=== PATIENT | male | born 1950 | race Caucasian/White ===

== ENCOUNTER 2025-04-12 12:18 | Emergency (ER) | payer MEDICARE, SELFPAY ==
--- NOTE | 2025-04-12 12:22 | XR_ITS ---
WS: [id number] Portable AP upright chest, 04/12/2025 Clinical Data: cp Comparison: Two-view chest, 07/26/2009 Findings: No nodules, masses or effusions are seen. The heart is normal. The pulmonary vascularity is not increased. No pneumonia or pneumothorax is seen. The aortic arch shows calcification and there is tortuosity of the descending thoracic aorta. XR/XR chest 1V portable [id number] Impression: Atherosclerosis.
[2025-04-12 12:23] VITALS: BP 155/75; PULSE 73; RESP 16; TEMP 37; O2SAT 94; BMI 26.6
--- NOTE | 2025-04-12 12:26 | ECG_ITS ---
[facility]: 2025-[facility]12 Pat Name: Urbano Albert Department: Room: Gender: Male Ophthalmic Medical Technologist: : [id number] Requested By: Addi Steele Order Number: [id number] Nik MD: Dutch Clement M.D. Measurements Intervals [place] Rate: 75 P: 75 LA: 170 QRS: 66 QRSD: 105 T: 71 QT: 346 QTc: 387 Interpretive Statements SINUS RHYTHM WITH OCCASIONAL VENTRICULAR PREMATURE COMPLEXES INTERPRETATION BASED ON A DEFAULT AGE OF 40 YEARS Compared to ECG 07/26/2009 09:30:50 Ventricular premature complex(es) now present Electronically Signed On 04-12-2025 21:53:17 MECHANICAL DETAILER by Dutch Clement M.D. [email or web address] [id number]
--- NOTE | 2025-04-12 12:28 | W.ED.CHESTPA ---
HPI - Chest Pain General: Chief Complaint: Chest Pain Stated Complaint: cp Time Seen by Provider: 04/12/25 12:22 Source: patient Mode of arrival: ambulatory Limitations: no limitations History of Present Illness: 75-year-old male states that he has been having intermittent chest pains over the last 2 weeks. He states been sharp in nature. He denies any pain currently he denies any shortness of breath or nausea denies any worse improved factors had has a history of stent placement in the past. Denies any radiation of his pain. Related Data Home Medications ?Medication ?Instructions ?Recorded ?Confirmed aspirin 81 mg tablet,delayed 81 mg PO DAILY 04/12/25 04/12/25 release (Ron Low Dose Aspirin) lisinopril 30 mg tablet 30 mg PO DAILY 04/12/25 04/12/25 metoprolol succinate 50 mg 50 mg PO DAILY 04/12/25 04/12/25 tablet,extended release 24 hr nitroglycerin 0.4 mg sublingual 0.4 mg sublingual Q5M PRN Chest 04/12/25 04/12/25 tablet Pain rosuvastatin 40 mg tablet 40 mg PO DAILY 04/12/25 04/12/25 Allergies Allergy/AdvReac Type Severity Reaction Status Date / Time No Known Allergies Allergy Verified 04/12/25 12:27 Review of Systems Card: Reports: chest pain Physical Exam Const: COMMON NORMALS: patient oriented x3 HENMT: COMMON NORMALS: normocephalic and atraumatic HEAD & SCALP: normocephalic and atraumatic Neck/C-Spine: COMMON NORMALS: full ROM and supple Chest: COMMONS NORMALS: normal inspection of the chest and normal palpation of entire chest wall Resp: COMMON NORMALS: normal respiratory effort, No retractions, No use of accessory muscles and clear to auscultation bilaterally AUSCULTATION: clear to auscultation bilaterally Cardio: COMMON NORMALS: regular rate, regular rhythm and No murmurs present (Cardio) RATE: regular rate RHYTHM: regular rhythm GI: COMMON NORMALS: Normal to inspection, nondistended, normoactive bowel sounds present, Soft to palpation, non-tender and no masses PALPATION: Yes Soft to palpation Extremity: COMMON NORMALS: normal to inspection and full ROM Neuro: COMMON NORMALS: patient oriented x3, moves all extremities and no focal motor deficits Psych: COMMON NORMALS: mental status grossly normal, Normal thought process present and cooperative THOUGHT PROCESS: Normal thought process present Skin: COMMON NORMALS: no rashes or lesions noted and no wounds GENERAL SKIN EXAM: no rashes or lesions noted Course Vital Signs: Vital signs: Vital Signs Temperature 98.6 F 04/12/25 12:23 Pulse Rate 63 04/12/25 14:00 Respiratory Rate 16 04/12/25 14:00 Blood Pressure 137/65 04/12/25 14:00 Pulse Oximetry 93 04/12/25 14:00 Oxygen Delivery Me thod Room Air 04/12/25 14:00 MDM - Chest Pain Medical Decision Making Patient presents here and chest pain has been going on for weeks differential includes ACS, pneumothorax, pulm emboli, pneumonia, aortic dissection. I do not believe he has any of the above chest x-ray here interpreted by me showed no acute abnormalities no signs of pneumonia pneumothorax or mediastinal widening. He has no shortness of breath no chest pain here no signs of pulm emboli. Patient's heart score is 2 his initial and repeat troponins are negative EKG showed normal sinus rhythm heart rate [address] elevation QRS 105 QTc 374. Patient has been chest pain-free while here. I did go over all these findings with patient including his normal labs. Informed him he needs to follow-up his PCP in 2 to 4 days and return if worsening he understands agrees to plan. Medical Records I reviewed the patient's medical records. Lab Data I reviewed the patient's lab results. 04/12/25 12:30 04/12/25 12:30 Radiology Impressions Chest X-Ray 04/12/25 12:22 Impression: Atherosclerosis. Laboratory Results WBC 4.52 10^3/uL (3.29-11.43) 04/12/25 12:30 RBC 5.02 10^6/uL (3.85-5.65) 04/12/25 12:30 Hgb 15.10 g/dL (11.27-16.99) 04/12/25 12:30 Hct 44.5 % (37-53) 04/12/25 12:30 MCV 88.6 fl (82-101) 04/12/25 12:30 MCH 30.1 pg (27-33) 04/12/25 12:30 MCHC 33.9 g/dL (30-55) 04/12/25 12:30 RDW 12.4 % (12.1-15.1) 04/12/25 12:30 Plt Count 154 10^3/cmm (157-399) L 04/12/25 12:30 MPV 9.7 fL (7.4-10.4) 04/12/25 12:30 Neut % (Auto) 52.9 % 04/12/25 12: Lymph % (Auto) 37.2 % 04/12/25 12:30 Leake % (Auto) 7.7 % 04/12/25 12:30 Eos % (Auto) 1.3 % 04/12/25 12:30 Baso % (Auto) 0.7 % 04/12/25 12:30 Neut # (Auto) 2.39 10^3/uL (1.8-7.7) 04/12/25 12: Lymph # (Auto) 1.7 10^3/uL (0.8-4.8) 04/12/25 12:30 Leake # (Auto) 0.4 10^3/uL (0.2-0.9) 04/12/25 12:30 Eos # (Auto) 0.1 10^3/uL (0.0-0.8) 04/12/25 12:30 Baso # (Auto) 0.0 10^3/uL (0.0-0.1) 04/12/25 12:30 Nucleated RBC % (auto) 0 % 04/12/25 12: Nucleated RBCs # 0.0 /100WBC 04/12/25 12:30 Sodium 143 mmol/L (136-145) 04/12/25 12:30 Potassium 4.2 mmol/L (3.5-5.1) 04/12/25 12:30 Chloride 109 mmol/L (98-107) H 04/12/25 12:30 Carbon Dioxide 23 mmol/L (22-29) 04/12/25 12:30 Anion Gap 15.2 (5-19) 04/12/25 12:30 BUN 14 mg/dL (8-23) 04/12/25 12:30 Creatinine 0.7 mg/dL (0.7-1.2) 04/12/25 12:30 GFR Calculation Not Reportable 04/12/25 12:30 Glucose 121 mg/dL (65-115) H 04/12/25 12:30 Calculated Osmolality 298 mOsm/kg (285-295) H 04/12/25 12:30 Calcium 9.4 mg/dL (8.5-10.5) 04/12/25 12:30 Total Bilirubin 0.6 mg/dL (0.15-1.2) 04/12/25 12:30 AST 24 U/L (0-40) 04/12/25 12:30 ALT 20 U/L (0-41) 04/12/25 12:30 Alkaline Phosphatase 90 U/L (40-130) 04/12/25 12:30 Troponin T Baseline 12 ng/L (0-15) 04/12/25 12:30 Troponin T 120 Minute 11.41 ng/L (0-15) 04/12/25 14:01 Delta Troponin T -0.59 ABS# (0-10) L 04/12/25 14:01 Total Protein 6.7 g/dL (6.6-8.7) 04/12/25 12:30 Albumin 4.3 g/dL (3.5-5.2) 04/12/25 12:30 Globulin 2.4 g/dL (1.3-4.6) 04/12/25 12:30 Lipase 26 U/L (13-60) 04/12/25 12:30 All radiology interpretation(s) finalized by discharge EKG Data EKG 1: I personally reviewed and interpreted this EKG as follows: EKG interpretation date: 04/12/25 EKG interpretation time: 12:26 Interpretation: nsr hr [address] elevation qrs 105 qtc 374 EKG 2: I personally reviewed and interpreted this EKG as follows: EKG interpretation date: 04/12/25 EKG interpretation time: 14:05 Interpretation: nsr hr [address] elevation qrs 86 qtc 387 Discharge Plan Discharge Patient Disposition: Home Clinical Impression: Chest pain Condition: Stable Prescriptions: No Action metoprolol succinate 50 mg tablet extended release 24 hr 50 mg PO DAILY aspirin [Ron Low Dose Aspirin] 81 mg Tablet,Delayed Release (Dr/Ec) 81 mg PO DAILY nitroglycerin 0.4 mg Tablet, Sublingual 0.4 mg SUBLINGUAL Q5M PRN (Reason: Chest Pain) Rx Instructions: do not exceed 3 doses per episode lisinopril 30 mg tablet 30 mg PO DAILY rosuvastatin 40 mg tablet 40 mg PO DAILY Discharge Orders: Discharge ED (Routine); Ordered 04/12/25 Ordered By: Addi Steele Referrals: Thaddeus Garcia MD [Primary Care Provider, [facility]] - 4-7 days Discharge Diet: Advance as tolerated Discharge Activity: Resume usual activity Patient Instructions: Chest Pain (ED) Print Language: Brazilian Coding Level of Care Code ED Inside Trucker for Chg Fwd Heart Score HEART Score Components History: Slightly Suspicous EKG: Normal Age: 65 or more yrs Risk Factors: No Risk Factors Known Troponin: Baseline Trop <16 ng/L HEART Score RESULT HEART Score: 2
--- OUTSIDE RECORDS SUMMARY | 2025-04-12 12:31 | XMS_ITS | Data Portability ---
Author Organization CLAUDIA Abner [facility] Address [address] [facility] [address] [place] [address] Assessment Encounter Date Assessment Date Assessment LastModified by Organization Details LastModified Time 05/27/2023 05/27/2023 His platelets were once again found to be mildly below normal range. We will recheck his counts in 6 months. Not available 05/27/2023 22:17:20 04/12/2025 04/12/2025 I have a call in to Dr Carvalho. I believe he would benefit by going straight to a cath given his history and the clear association with activity. Not available 04/12/2025 10:25:46 Plan of Treatment Reminders Order Date Submit Date Provider Last Modified By Organization Details Last Modified Time Details Appointments OFFICE VISIT 20 2024 08:40A Sonia Garcia MD Not available Not available Not available OFFICE VISIT 20 2025 08:20A Sonia Garcia MD Not available Not available Not available Lab CBC 2024 025 [facility], [address], [place], [address], 04/12/2025 10:24:46 CMP, serum or plasma 2024 025 [facility], [address], [address], [place], [address], 04/12/2025 10:24:46 CMP, serum or plasma 2024 025 [place] [facility], [address], [address], [place], [address], 04/12/2025 10:24:44 CMP, serum or plasma 2024 025 [email or web address] [place] [facility], [address], [address], [place], [address], 08/03/2024 12:17:51 CMP, serum or plasma 2024 025 [facility], [address], [address], [place], [address], 07/27/2024 13:14:36 CBC 2024 025 [facility], [address], [address], [place], [address], 07/27/2024 12:53:46 lipid panel, blood 2024 025 [facility], [address], [address], [place], [address], 07/27/2024 13:14:39 CBC 2023 024 [facility], [address], [address], [place], [address], 01/14/2024 11:51:16 lipid panel, blood 2022 023 [place] [facility], [address], [address], [place], [address], 05/27/2023 16:57:38 CBC 2022 023 [facility], [address], [address], [place], [address], 05/27/2023 17:16:08 Referral interv ention al cardio logy referr al 2024 [facility] Not available 04/12/2025 10:26:06 Procedures None record ed. Surgeries None record ed. Imaging electr ocelsie ogram [address] ([facility]), [address] [place], [address], 04/12/2025 10:26:06 XR, chest, 2 view [address] ([facility]), [address] [place], [address], 04/12/2025 10:26:06 Medication Orders Nitros tat 0.4 mg sublin gual tablet 2024 [facility], [address] [place] [place], [address], 04/12/2025 10:27:46 metopr olol succin ate ER 50 mg tablet ,exten ded releas e 24 hr 2024 025 [facility], [address] [place], [address], 01/24/2025 12:27:41 rosuva statin 40 mg tablet 2024 025 [facility], [address] [place], [address], 07/27/2024 12:21:28 lisino pril 30 mg tablet 2024 025 [facility], [address] [place], [address], 07/27/2024 12:21:28 metopr olol succin ate ER 50 mg tablet ,exten ded releas e 24 hr 2024 025 [facility], [address], [address], 07/27/2024 12:21:28 Patient TargetsNo targets recorded. Patient InstructionsNo instructions recorded. Reason for Referral Interventional Cardiology Re ferral for Chest pain Referring Physician: Thaddeus Garcia, Family Medicine, Encounter Date: 04/12/2025 Results Created Date Observation Date Name Description Value Unit Range Abnormal Flag Note LastModifiedBy Organization Detail LastModifiedTime 05/27/2005/27/2023 LIPID PROFI LE (MALE ) cholesterol 169.0 mg/dL 0.0-20 0.0 Not Available [facility] [address], [place], [address], 05/27/2023 16:57:38 05/27/20 23 05/27/2023 LIPID PROFI LE (MALE ) trig 139.0 mg/dL 0.0-15 0.0 Not Available [facility] [address], [place], [address], 05/27/2023 16:57:38 05/27/20 23 05/27/2023 LIPID PROFI LE (MALE ) HDL - direct 43.0 mg/dL >40.[address] [facility] [address], [place], [address], 05/27/2023 16:57:38 05/27/20 23 05/27/2023 LIPID PROFI LE (MALE ) VLDL - direct 27.8 mg/dL Not Available [facility] [address], [place], [address], 05/27/2023 16:57:38 05/27/20 23 05/27/2023 LIPID PROFI LE (MALE ) LDL - direct 98.2 mg/dL 0.0-13 0.0 Not Available [facility] [address], [place], [address], 05/27/2023 16:57:38 05/27/20 23 05/27/2023 CBC WBC 4.8 x10 4.5-10 .5 Not Available [facility] [address], [place], [address], 05/27/2023 17:16:08 05/27/20 23 05/27/2023 CBC RBC 5.21 x10 4.30-5 .90 Not Available [facility] [address], [place], [address], 05/27/2023 17:16:08 05/27/20 23 05/27/2023 CBC HGB 16.3 g/dL 13.5-1 8.0 Not Available [facility] [address] [facility], [place], [address], 05/27/2023 17:16:08 05/27/20 23 05/27/2023 CBC HCT 46.3 % 35.0-6 0.0 Not Available [facility] [address], [place], [address], 05/27/2023 17:16:08 05/27/20 23 05/27/2023 CBC MCV 88.9 fL 80.0-9 9.9 Not Available [facility] [address] [facility] [address], [place], [address], 05/27/2023 17:16:08 05/27/20 23 05/27/2023 CBC MCH 31.3 pg 27.0-3 2.0 Not Available [facility] [address], [place], [address], 05/27/2023 17:16:08 05/27/20 23 05/27/2023 CBC MCHC 35.2 g/dL 32.0-3 6.0 Not Available [facility] [address] [facility] [address], [place], [address], 05/27/2023 17:16:08 05/27/20 23 05/27/2023 CBC RDW 13.2 % 11.5-1 4.5 Not Available [facility] [address] [facility], [place], [address], 05/27/2023 17:16:08 05/27/20 23 05/27/2023 CBC plt 122.3 x10 150.0- 451.0 low Not Available [facility] [address] [facility] [address], [place], [address], 05/27/2023 17:16:08 05/27/20 23 05/27/2023 CBC lymphocytes % 39.8 % 20.0-5 0.0 Not Available [facility] [address] [facility], [place], [address], 05/27/2023 17:16:08 05/27/20 23 05/27/2023 CBC granulcytes % 48.2 % 30.0-7 0.0 Not Available [facility] [address] [facility], [place], [address], 05/27/2023 17:16:08 05/27/20 23 05/27/2023 CBC monocytes % 9.3 % 2.0-10 .0 Not Available [facility] [address] [facility], [place], [address], 05/27/2023 17:16:08 05/27/20 23 05/27/2023 CBC granulcytes# 2.3 x10 Not Catrachita ilable [facility] [address] [facility], [place], [address], 05/27/2023 17:16:08 05/27/20 23 05/27/2023 CBC lymphocytes # 1.9 x10 Not Available [facility] [address], [place], [address], 05/27/2023 17:16:08 05/27/20 23 05/27/2023 CBC monocytes # 0.5 x10 Not Avai lable [facility] [address], [place], [address], 05/27/2023 17:16:08 01/14/20 24 01/14/2024 CBC WBC 5.4 x10 4.5-10 .5 Not Available [facility] [address], [place], [address], 01/14/2024 11:51:15 01/14/20 24 01/14/2024 CBC RBC 5.26 x10 4.30-5 .90 Not Available [facility] [address], [place], [address], 01/14/2024 11:51:15 01/14/20 24 01/14/2024 CBC HGB 16.0 g/dL 13.5-1 8.0 Not Available [facility] [address], [place], [address], 01/14/2024 11:51:15 01/14/20 24 01/14/2024 CBC HCT 46.5 % 35.0-6 0.0 Not Available [facility] [address], [place], [address], 01/14/2024 11:51:15 01/14/20 24 01/14/2024 CBC MCV 88.4 fL 80.0-9 9.9 Not Available [facility] [address], [place], [address], 01/14/2024 11:51:15 01/14/20 24 01/14/2024 CBC MCH 30.5 pg 27.0-3 2.0 Not Available [facility] [address] [facility], [place], [address], 01/14/2024 11:51:15 01/14/20 24 01/14/2024 CBC MCHC 34.5 g/dL 32.0-3 6.0 Not Available [facility] [address] [facility], [place], [address], 01/14/2024 11:51:15 01/14/20 24 01/14/2024 CBC RDW 13.2 % 11.5-1 4.5 Not Available [facility] [address] [facility], [place], [address], 01/14/2024 11:51:15 01/14/20 24 01/14/2024 CBC plt 132.4 x10 150.0- 451.0 low Not Available [facility] [address] [facility], [place], [address], 01/14/2024 11:51:15 01/14/20 24 01/14/2024 CBC lymphocytes % 29.7 % 20.0-5 0.0 Not Available [facility] [address] [facility], [place], [address], 01/14/2024 11:51:15 01/14/20 24 01/14/2024 CBC granulcytes % 54.6 % 30.0-7 0.0 Not Available [facility] [address] [facility], [place], [address], 01/14/2024 11:51:15 01/14/20 24 01/14/2024 CBC monocytes % 12.7 % 2.0-16 .0 Not Available [facility] [address] [facility], [place], [address], 01/14/2024 11:51:15 01/14/20 24 01/14/2024 CBC granulcytes# 3.0 x10 Not Catrachita ilable [facility] [address] [facility], [place], [address], 01/14/2024 11:51:15 01/14/20 24 01/14/2024 CBC lymphocytes # 1.6 x10 Not Available [facility] [address] [facility], [place], [address], 01/14/2024 11:51:15 01/14/20 24 01/14/2024 CBC monocytes # 0.7 x10 Not Avai lable [facility] [address] [facility], [place], [address], 01/14/2024 11:51:15 07/27/19 25 07/27/2024 CBC WBC 4.7 x10 4.5-10 .5 Not Available [facility] [address] [facility], [place], [address], 07/27/2024 12:53:46 07/27/1907/27/2024 CBC RBC 5.30 x10 4.30-5 .90 Not Available [facility] [address] [facility], [place], [address], 07/27/2024 12:53:46 07/27/19 25 07/27/2024 CBC HGB 16.1 g/dL 13.5-1 8.0 Not Available [facility] [address] [facility], [place], [address], 07/27/2024 12:53:46 07/27/19 25 07/27/2024 CBC HCT 46.1 % 35.0-6 0.0 Not Available [facility] [address] [facility], [place], [address], 07/27/2024 12:53:46 07/27/19 25 07/27/2024 CBC MCV 87.0 fL 80.0-9 9.9 Not Available [facility] [address] [facility], [place], [address], 07/27/2024 12:53:46 07/27/19 25 07/27/2024 CBC MCH 30.3 pg 27.0-3 2.0 Not Available [facility] [address] [facility], [place], [address], 07/27/2024 12:53:46 07/27/19 25 07/27/2024 CBC MCHC 34.9 g/dL 32.0-3 6.0 Not Available [facility] [address] [facility], [place], [address], 07/27/2024 12:53:46 07/27/19 25 07/27/2024 CBC RDW 13.5 % 11.5-1 4.5 Not Available [facility] [address] [facility], [place], [address], 07/27/2024 12:53:46 07/27/19 25 07/27/2024 CBC plt 111.3 x10 150.0- 451.0 low Not Available [facility] [address] [facility], [place], [address], 07/27/2024 12:53:46 07/27/19 25 07/27/2024 CBC lymphocytes % 39.7 % 20.0-5 0.0 Not Available [facility] [address] [facility], [place], [address], 07/27/2024 12:53:46 07/27/19 25 07/27/2024 CBC granulcytes % 47.7 % 30.0-7 0.0 Not Available [facility] [address] [facility], [place], [address], 07/27/2024 12:53:46 07/27/19 25 07/27/2024 CBC monocytes % 9.8 % 2.0-16 .0 Not Available [facility] [address] [address], [place], [address], 07/27/2024 12:53:46 07/27/19 25 07/27/2024 CBC granulcytes# 2.2 x10 Not Catrachita ilable [facility] [address] [address], [place], [address], 07/27/2024 12:53:46 07/27/19 25 07/27/2024 CBC lymphocytes # 1.9 x10 Not Available [facility] [address] [address], [place], [address], 07/27/2024 12:53:46 07/27/19 25 07/27/2024 CBC monocytes # 0.5 x10 Not Avai lable [facility] [address] [address], [place], [address], 07/27/2024 12:53:46 07/27/19 25 07/27/2024 CMP (MALE ) glucose 87.0 mg/dL 60.0-9 9.0 Not Available [facility] [address] [address], [place], [address], 07/27/2024 13:14:36 07/27/19 25 07/27/2024 CMP (MALE ) BUN (blood urea nitrogen) 18.0 mg/dL 10.0-2 6.0 Not Available [facility] [address] [address], [place], [address], 07/27/2024 13:14:36 07/27/19 25 07/27/2024 CMP (MALE ) creatinine (serum) 0.7 mg/dL 0.4-1. 5 Not Available [facility] [address] [place], [address], 07/27/2024 13:14:36 07/27/19 25 07/27/2024 CMP (MALE ) BUN/creatini ne ratio 25.71 ratio Not Available [facility] [address] [facility], [place], [address], 07/27/2024 13:14:36 07/27/19 25 07/27/2024 CMP (MALE ) eGFR calculated 116.5 Not Available [facility] [address] [facility] [address], [place], [address], 07/27/2024 13:14:36 07/27/19 25 07/27/2024 CMP (MALE ) total protein 7.3 g/dL 6.0-8. 5 Not Available [facility] [address] [address], [place], [address], 07/27/2024 13:14:36 07/27/19 25 07/27/2024 CMP (MALE ) total bilirubin 0.7 mg/dL 0.2-1. 3 Not Available [facility] [address] [facility] [address], [place], [address], 07/27/2024 13:14:36 07/27/19 25 07/27/2024 CMP (MALE ) albumin 4.5 g/dL 3.5-5. 5 Not Available [facility] [address] [address], [place], [address], 07/27/2024 13:14:36 07/27/19 25 07/27/2024 CMP (MALE ) globulin 2.[address] [facility] [address] [facility], [place], [address], 07/27/2024 13:14:36 07/27/19 25 07/27/2024 CMP (MALE ) AST (SGOT) 27.0 U/L 0.0-46 .0 Not Available [facility] [address] [facility], [place], [address], 07/27/2024 13:14:36 07/27/19 25 07/27/2024 CMP (MALE ) altv (SGPT) 27.0 U/L 13.0-6 9.0 normal Not Available [facility] [address] [facility], [place], [address], 07/27/2024 13:14:36 07/27/19 25 07/27/2024 CMP (MALE ) A/G ratio 1.6 ratio Not Available [facility] [address], [place], [address], 07/27/2024 13:14:36 07/27/19 25 07/27/2024 CMP (MALE ) ALP phos 79.0 U/L 30.0-1 40.0 normal Not Available [facility] [address] [facility] [address], [place], [address], 07/27/2024 13:14:36 07/27/19 25 07/27/2024 CMP (MALE ) calcium 9.6 mg/dL 8.4-10 .5 Not Available [facility] [address] [facility] [address], [place], [address], 07/27/2024 13:14:36 07/27/19 25 07/27/2024 CMP (MALE ) sodium 139.0 mmol/ L 136.0- 145.0 Not Available [facility] [address] [facility] [address], [place], [address], 07/27/2024 13:14:36 07/27/19 25 07/27/2024 CMP (MALE ) potassium 4.7 mmol/ L 3.5-5. 1 Not Available [facility] [address] [facility] [address], [place], [address], 07/27/2024 13:14:36 07/27/19 25 07/27/2024 CMP (MALE ) chloride 107.0 mmol/ L 98.0-1 10.0 normal Not Available [facility] [address] [facility] [address], [place], [address], 07/27/2024 13:14:36 07/27/19 25 07/27/2024 CMP (MALE ) C02 24.0 mmol/ L 22.0-3 1.0 Not Available [facility] [address] [facility] [address], [place], [address], 07/27/2024 13:14:36 07/27/19 25 07/27/2024 CMP (MALE ) anion gap 8.0 calc Not Available [facility] [address] [facility] [address], [place], [address], 07/27/2024 13:14:36 07/27/19 25 07/27/2024 CMP (MALE ) osmolality 288.4 calc Not Available [facility] [address] [facility] [address], [place], [address], 07/27/2024 13:14:36 07/27/19 25 07/27/2024 LIPID PROFI LE (MALE ) cholesterol 138.0 mg/dL 0.0-20 0.0 Not Available [facility] [address] [facility] [address], [place], [address], 07/27/2024 13:14:39 07/27/19 25 07/27/2024 LIPID PROFI LE (MALE ) trig 103.0 mg/dL 0.0-15 0.0 Not Available [facility] [address] [facility] [address], [place], [address], 07/27/2024 13:14:39 07/27/19 25 07/27/2024 LIPID PROFI LE (MALE ) HDL - direct 42.0 mg/dL >40.0 Not Available [facility] [address] [facility] [address], [place], [address], 07/27/2024 13:14:39 07/27/19 25 07/27/2024 LIPID PROFI LE (MALE ) VLDL - direct 20.6 mg/dL Not Available [facility] [address] [facility] [address], [place], [address], 07/27/2024 13:14:39 07/27/19 25 07/27/2024 LIPID PROFI LE (MALE ) LDL - direct 75.4 mg/dL 0.0-13 0.0 Not Available [facility] [address] [facility] [address], [place], [address], 07/27/2024 13:14:39 04/12/20 25 elect rocar diogr am No observ ation record ed. [address] ([facility]) [address] [place] [address], [phone], 04/12/2025 10:16:50 04/12/20 25 XR, chest , 2 view No observ ation record ed. [address] ([facility]) [address] [place] [address], [phone], 04/12/2025 10:16:51 Result Notes None recorded. Problems Name Problem SNOMED Code Status Onset Date Resolution Date Notes Provider Name and Address Organization Details Recorded Time Hyperchol esterolem ia 28056020 Active 2022 Hyperch olester olemia; 023 8:23AM by Milena murphy, Office Visit; Promote d; acuity set as *; ADAM ramos [place] - [facility], Mya 11:15:01 [place] py Completed 202207/26/2024 Colonos copy; 04/14/12 @ [facility] by Dr. Gabriela patel; 023 8:23AM by Milena murphy, Office Visit; Promote d; acuity set as *; ADAM ramos [facility], L.L.CCristopher 5 11:14:59 Benign essential hypertens ion 2634374 Active 2022 Hyperte nsion; 023 8:23AM by Milena murphy, Office Visit; Promote d; acuity set as *; ADAM ramos [facility], L.L.CCristopher 5 11:14:52 Tubular adenomato us polyp of colon 251753677 Completed 202207/26/2024 ADAM ramos [facility], L.L.CCristopher 5 11:15:23 Lesion of skin of face 07624451005 6 Completed 202207/26/2024 ADAMPATTI ramos [facility], L.L.CCristopher 5 11:15:12 Problem Notes None recorded. Procedures Surgical History Date Name Laterality Status Provider Name and Address Organization Details Recorded Time 3 Excision and closure completed Thaddeus Garcia MD [address] [place] [address], [id number] [place] [address], L.L.CCristopher 12/24/2022 11:56:31 3 Colonoscopy with biopsy completed ADAM BAILEY [facility], L.L.CCristopher 09/30/2022 12:27:25 Imaging Results None recorded. Procedure Notes None recorded. Medical Equipment None Reported. Allergies No known drug allergies Medications Name Sig Start Date Stop Date Status Note LastModified by Organization Details LastModified Time metoprolol succinate ER 50 mg tablet,exten ded release 24 hr TAKE 1 TABLET BY MOUTH ONCE DAILY active Not Available Not Available No t Available aspirin 81 mg tablet,delay ed release Take 4 tablets every day by oral route. active Not Available Not Available No t Available Nitrostat 0.4 mg sublingual tablet Take 1 tablet q 5 minutes up to 3 times as needed for chest pain 2024 active Not Available Not Available Not Avai lable lisinopril 30 mg tablet TAKE 1 TABLET BY MOUTH ONCE DAILY active Not Available Not Available No t Available propranolol 20 mg tablet TAKE ONE TABLET BY MOUTH TWICE DAILY 09/30 completed VO JR/bh Not Available Not Available Not Available rosuvastatin 40 mg tablet TAKE 1 TABLET BY MOUTH ONCE DAILY active Not Available Not Available No t Available Vitals Date Recorded Body height Body mass index (BMI) Body weight Respiratory rate Body temperature Heart rate Oxygen saturation Oxygen saturation in Arterial blood by Pulse oximetry Systolic And Diastolic Provider Name and Address Organization Details Last Updated DateTime 5 177.8 cm 30.3 kg/m2 92034.3 9 g 18 /min 97.9 [degF] 55 /min 96 % 96 % 130/70 mm[Hg] [facility], L.L.CCristopher 5 11:34:29 Date Recorded Body height Body mass index (BMI) Body weight Oxygen saturation Oxygen saturation in Arterial blood by Pulse oximetry Heart rate Respiratory rate Body temperature Systolic And Diastolic Provider Name and Address Organization Details Last Updated DateTime 4 177.8 cm 30.6 kg/m2 65547.9 7 g 95 % 95 % 55 /min 18 /min 98.1 [degF] 130/72 mm[Hg] MILENA CARTWRIGHT [facility] 4 11:04:13 Date Recorded Body height Body mass index (BMI) Body weight Respiratory rate Oxygen saturation Oxygen saturation in Arterial blood by Pulse oximetry Heart rate Body temperature Systolic And Diastolic Provider Name and Address Organization Details Last Updated DateTime 5 177.8 cm 29.9 kg/m2 03893.0 1 g 20 /min 95 % 95 % 57 /min 98.2 [degF] 128/68 mm[Hg] [facility] 5 11:41:18 Date Recorded Body height Body mass index (BMI) Body weight Oxygen saturation Oxygen saturation in Arterial blood by Pulse oximetry Heart rate Respiratory rate Body temperature Systolic And Diastolic Provider Name and Address Organization Details Last Updated DateTime 5 177.8 cm 29.4 kg/m2 26852.4 4 g 96 % 96 % 60 /min 18 /min 97.7 [degF] 130/68 mm[Hg] ADAM BAILEY [facility] 5 09:57:05 Date Recorded Body height Body mass index (BMI) Body weight Oxygen saturation Oxygen saturation in Arterial blood by Pulse oximetry Heart rate Respiratory rate Body temperature Systolic And Diastolic Provider Name and Address Organization Details Last Updated DateTime 3 177.8 cm 31.6 kg/m2 38071.3 2 g 98 % 98 % 74 /min 18 /min 97.9 [degF] 144/74 mm[Hg] ADAM BAILEY [facility] 3 14:32:20 Social History Question Answer Notes LastModified by [employer] Details LastModified Time Tobacco Smoking Status Never Smoker ADAM ramos [facility] 11/11/2022 11:11:16 What Was The Date Of Your Most Recent Tobacco Screening? 01/24/2025 Information not available 01/24/2025 Sex: Unknown Functional Status Question Answer Note LastModified by [employer] Details LastModified Time Do you use any illicit or recreational drugs? No Information not available 01/14/2024 Do you or have you ever used any other forms of tobacco or nicotine? No Information not available 07/27/2024 What is your level of alcohol consumption? Occasional Information not available 01/14/2024 Mental Status None recorded. Family History Nothing Reported. Medical History Condition Response Coronary Artery Disease Y High Cholesterol Y Hypertension Y Immunizations Vaccine Type Date Status Note Provider Nam e and Address Organization Details Recorded Time Td(adult) unspecified formulation 3 completed ADAM ramos [facility] 05/27/2023 14:27:41 Influenza, split virus, trivalent, preservative [facility] 14:27:41 Influenza, high-dose, quadrivalent, PF 3 completed ADAM BAILEY [facility] 05/27/2023 14:27:41 Pneumococcal conjugate PCV20, polysaccharide [id number] conjugate, adjuvant, PF 3 [facility]23 14:27:41 COVID-19, mRNA, LNP-S, PF, 50 mcg/0.5 mL 3 [facility] 05/27/2023 14:27:41 RSV, recombinant, protein subunit RSVpreF, adjuvant reconstituted, 0.5 mL, PF 4 completed [facility] 01/14/2024 10:57:25 COVID-19, mRNA, LNP-S, PF, tana-sucrose, 30 mcg/0.3 mL 4 completed ADAM BAILEY [facility] 07/27/2024 11:34:57 Influenza, high-dose, trivalent, PF 4 completed ADAM BAILEY [facility] 07/27/2024 11:34:57 RSV, recombinant, protein subunit RSVpreF, adjuvant reconstituted, 0.5 mL, PF 4 completed Not Available [facility] 04/12/2025 08:47:59 Influenza, high-dose, quadrivalent, PF 2 completed ADAM BAILEY [facility] 11/11/2022 11:07:02 COVID-19, mRNA, LNP-S, PF, 100 mcg/0.5mL dose or 50 mcg/0.25mL dose 1 completed ADAM ramos [facility] 11/11/2022 11:07:02 COVID-19, mRNA, LNP-S, PF, 100 mcg/0.5mL dose or 50 mcg/0.25mL dose 1 completed ADAM ramos [facility] 11/11/2022 11:07:02 COVID-19, mRNA, LNP-S, PF, 100 mcg/0.5mL dose or 50 mcg/0.25mL dose 2 completed ADAM ramos [facility] 11/11/2022 11:07:02 COVID-19, mRNA, LNP-S, PF, 100 mcg/0.5mL dose or 50 mcg/0.25mL dose 1 completed ADAM ramos [facility] 11/11/2022 11:07:02 COVID-19, mRNA, LNP-S, bivalent, PF, 50 mcg/0.5 mL or 25mcg/0.25 mL dose 2 completed ADAM ramos [facility] 11/11/2022 11:07:02 Td (adult), 2 Lf tetanus toxoid, preservative free, adsorbed 6 completed ADAM ramos [facility] 11/11/2022 11:07:02 Influenza, split virus, quadrivalent, PF 2 completed ADAM ramos [facility] 11/11/2022 11:07:02 Past Encounters Encounter ID Performer Location Encounter Start Date Encounter Closed Date Diagnosis/Indication Diagnosis SNOMED-CT Code Diagnosis ICD10 Code Diagnosis IMO Codes Diagnosis Note [id number] Thaddeus Garcia MD [facility] ([facility]) [address] [place] [address] [phone] 09/30/2022 11:38:29 09/30/2022 20:48:30 Tubular adenomatous polyp of colon 694995899 D12.6 We discussed the option of repeating colonoscop y in 5 years. Due to his age, and the small size of the polyps, I feel it is appropriat e to not repeat a colonoscop y. He will decide in 5 years. He is moving to [place] so he will discuss it with his provider there. [id number] Thaddeus Garcia MD [facility] ([facility]) [address] [place] [address] [phone] 11/11/2022 10:51:35 11/11/2022 20:22:46 Lesion of skin of face 6327413286 06 L98.9 Sebaceous cyst of skin 246469204 L72.3 We will remove at next appt. [id number] Thaddeus Garcia MD [facility] ([facility]) [address] [place] [address] [phone] 5 12/17/2022 08:51:42 12/29/2022 21:41:34 Lesion of scalp 2116991729 00 L98.9 Sebaceous cyst of skin 283546320 L72.3 [id number] Thaddeus Garcia MD [facility] ([facility]) [address] [place] [address] [phone] 5 12/24/2022 11:37:02 12/24/2022 17:43:04 Lesion of skin of face 8292908724 06 L98.9 Removal of suture 915008 01 Z48.02 [id number] Thaddeus Garcia MD [facility] ([facility]) [address] [place] [address] [phone] 5 05/27/2023 14:19:06 05/28/2023 10:05:12 Benign essential hypertension 7100380 I10 Hypercholesterolemia 136 90571 E78.00 Thrombocyt openic disorder 218565805 D69.6 [id number] Thaddeus Garcia MD [facility] ([facility]) [address] [place] [address] [phone] 5 01/14/2024 10:14:35 01/14/2024 11:21:07 Benign essential hypertension 2371241 I10 Hypercholesterolemia 136 00160 E78.00 Thrombocyt openic disorder 096578240 D69.6 [id number] Thaddeus Garcia MD [facility] ([facility]) [address] [place] [address] [phone] 5 07/27/2024 11:01:31 07/27/2024 12:13:53 Benign essential hypertension 2214873 I10 Hypercholesterolemia 136 21936 E78.00 [id number] Thaddeus Garcia MD [facility] ([facility]) [address] [place] [address] [phone] 5 01/24/2025 10:33:18 01/24/2025 13:01:10 Benign essential hypertension 3602304 I10 [id number] Thaddeus Garcia MD [facility] ([facility]) [address] [place] [address] [phone] 04/12/2025 08:46:03 04/12/2025 10:26:05 Chest pain 89276914 R07.9 [id number] Health Concerns Section Related Observation LastModified by Organization Detai ls LastModified Time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
--- OUTSIDE RECORDS SUMMARY | 2025-04-12 12:31 | XMS_ITS | Continuity of Care Document ---
Author Organization CLAUDIA Cisneros [facility] Mya Orr, [facility] ([facility]) Address [address] [place] [address] Assessment Encounter Date Assessment Date Assessment LastModified by Organization Details LastModified Time 04/12/2025 04/12/2025 I have a call in to Dr Carvalho. I believe he would benefit by going straight to a cath given his history and the clear association with activity. [email or web address] Not available 04/12/2025 10:25:46 Plan of Treatment Reminders Order Date Submit Date Provider Last Modified By Organization Details Last Modified Time Details Appointments OFFICE VISIT 20 2024 08:40A Sonia Garcia MD Not available Not available Not available OFFICE VISIT 20 2025 08:20A Sonia Garcia MD Not available Not available Not available Lab CBC 2024 025 [facility], [address], [address], [place], [address], 04/12/2025 10:24:46 CMP, serum or plasma 2024 025 [facility], [address], [address], [place], [address], 04/12/2025 10:24:46 CMP, serum or plasma 2024 025 [facility], [address], [address], [place], [address], 04/12/2025 10:24:44 Referral intervent ional cardiolog y referral [facility]24 [facility] Not available 04/12/2025 10:26:06 Procedures None recorded. Surgeries None recorded. Imaging electroca rdiogram [address] ([facility]), [address] [place], [address], 04/12/2025 10:26:06 XR, chest, 2 view [address] ([facility]), [address] [place], [address], 04/12/2025 10:26:06 Medication Orders Nitrostat 0.4 mg sublingua l tablet 2024 [facility], [address], [place], [address], 04/12/2025 10:27:46 Patient TargetsNo targets recorded. Patient InstructionsNo instructions recorded. Reason for Referral Interventional Cardiology Re ferral for Chest pain Referring Physician: Thaddeus Garcia, Family Medicine, Encounter Date: 04/12/2025 Results Created Date Observation Date Name Description Value Unit Range Abnormal Flag Note LastModifiedBy Organization Detail LastModifiedTime 04/12/20 25 elect rocar diogr am No observ ation record ed. [email or web address] [facility] ([facility]) [address] [place], [address], 04/12/2025 10:16:50 04/12/20 25 XR, chest , 2 view No observ ation record ed. [email or web address] [facility] ([facility]) [address] [place], [address], 04/12/2025 10:16:51 Result Notes None recorded. 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 Gabriela patel; 023 8:23AM by Milena murphy, Office Visit; Promote d; acuity set as *; ADAM ramos [facility], L.LAlejandro 5 11:14:59 Benign essential hypertens ion 2873774 Active 2022 Hyperte nsion; 023 8:23AM by Milena murphy, Office Visit; Promote d; acuity set as *; ADAM ramos [facility] L.L.CCristopher 5 11:14:52 Tubular adenomato us polyp of colon 551685659 Completed 202207/26/2024 ADAM ramos [facility]CC[facility] 5 11:15:23 Lesion of skin of face 57982286571 6 Completed 202207/26/2024 ADAM ramos [facility]CC[facility]opher 5 11:15:12 Problem Notes None recorded. Procedures Surgical History Date Name Laterality Status Provider Name and Address Organization Details Recorded Time 3 Excision and closure completed Thaddeus Garcia MD [address] [place] [address], [phone], [facility], L.L.CCristopher 12/24/2022 11:56:31 3 Colonoscopy with biopsy completed ADAM BAILEY [facility] L.LAlejandro 09/30/2022 12:27:25 Imaging Results None recorded. Procedure [...] and Address Organization Details Last Updated DateTime 177.8 cm 29.4 kg/m2 99847.4 4 g 96 % 96 % 60 /min 18 /min 97.7 [degF] 130/68 mm[Hg] ADAM BAILEY [facility] 09:57:05 Social History Question Answer Notes LastModified by Briteseed Details LastModified Time Tobacco Smoking Status Never Smoker ADAM BAILEY [facility] 11/11/2022 11:11:16 What Was The Date Of Your Most Recent Tobacco Screening? 01/24/2025 [email or web address] Information not available 01/24/2025 Sex: Unknown Functional Status Question Answer Note LastModified by Briteseed Details LastModified Time Do you use any illicit or recreational drugs? No Information not available 01/14/2024 Do you or have you ever used any other forms of tobacco or nicotine? No The News [email or web address] Information not available 07/27/2024 What is your level of alcohol consumption? Occasional Information not available 01/14/2024 Mental Status None recorded. Family History Nothing Reported. Medical History Condition Response Coronary Artery Disease Y Hypertension Y High Cholesterol Y Immunizations Vaccine Type Date Status Note Provider Nam e and Address Organization Details Recorded Time Td(adult) unspecified formulation 3 [facility] 05/27/2023 14:27:41 Influenza, split virus, trivalent, preservative 0 completed ADAM BAILEY [facility] 05/27/2023 14:27:41 Influenza, high-dose, quadrivalent, PF 3 completed ADAM BAILEY [facility] 05/27/2023 14:27:41 Pneumococcal conjugate PCV20, polysaccharide [id number] conjugate, adjuvant, PF 3 completed [facility] 05/27/2023 14:27:41 COVID-19, mRNA, LNP-S, PF, 50 mcg/0.5 mL 3 completed ADAM BAILEY [facility] 05/27/2023 14:27:41 RSV, recombinant, protein subunit RSVpreF, adjuvant reconstituted, 0.5 mL, PF 4 completed [facility] 01/14/2024 10:57:25 COVID-19, mRNA, LNP-S, PF, tana-sucrose, 30 mcg/0.3 mL 4 completed ADAM BAILEY [facility] 07/27/2024 11:34:57 Influenza, high-dose, trivalent, PF 4 completed [facility] 07/27/2024 11:34:57 RSV, recombinant, protein subunit RSVpreF, adjuvant reconstituted, 0.5 mL, PF 4 completed Not Available [facility] 04/12/2025 08:47:59 Influenza, high-dose, quadrivalent, PF 2 completed [facility] 11/11/2022 11:07:02 COVID-19, mRNA, LNP-S, PF, 100 mcg/0.5mL dose or 50 mcg/0.25mL dose 1 completed ADAM BAILEY [facility] 11/11/2022 11:07:02 COVID-19, mRNA, LNP-S, PF, 100 mcg/0.5mL dose or 50 mcg/0.25mL dose 1 completed [facility] 11/11/2022 11:07:02 COVID-19, mRNA, LNP-S, PF, 100 mcg/0.5mL dose or 50 mcg/0.25mL dose 2 completed ADAM BAILEY [facility] 11/11/2022 11:07:02 COVID-19, mRNA, LNP-S, PF, 100 mcg/0.5mL dose or 50 mcg/0.25mL dose 1 completed ADAM BAILEY [facility] 11/11/2022 11:07:02 COVID-19, mRNA, LNP-S, bivalent, PF, 50 mcg/0.5 mL or 25mcg/0.25 mL dose 2 completed ADAMPATTI BAILEY [facility] 11/11/2022 11:07:02 Td (adult), 2 Lf tetanus toxoid, preservative free, adsorbed 6 completed [facility] 11/11/2022 11:07:02 Influenza, split virus, quadrivalent, PF 2 completed ADAM ramos [facility] L[facility]LA[facility] 11/11/2022 11:07:02 Past Encounters Encounter ID Performer Location Encounter Start Date Encounter Closed Date Diagnosis/Indication Diagnosis SNOMED-CT Code Diagnosis ICD10 Code Diagnosis IMO Codes Diagnosis Note [id number] Thaddeus Garcia MD [facility] ([facility]) [address] [place] [address] 04/12/2025 08:46:03 04/12/2025 10:26:05 Chest pain 61106806 R07.9 [id number] Health Concerns Section Related Observation LastModified by Organization Detai ls LastModified Time None Recorded Concern Status LastModified by Organization Details LastModified Time None Recorded Payers Encounter Date Sequence Insurance Name Policy Number Policy Muñoz Covered Member ID Muñoz Member ID Guarantor Name 04/12/2025 1 [place]: S Urbano Albert [id number] Urbano Albert Notes Date Note Type Note Provider Name and Address Organization Details Recorded Time 04/12/2025 text/html Angina/Chest PainReported by PatientHPIFor quality, patient reportssharp. For severity, patient reportsvery limiting. For context, patient reportsexertional. For aggravating factors, patient reportsactivity. For location, patient reports__ armandmidsternal. For onset/timing, patient reportsstarted 2weeks ago. For associated symptoms, patient reportsno dyspnea,no cough,no associated palpitations,no associated dizziness,no fever, andno peripheral edema. Thaddeus Garcia MD [address] [place] [address], [phone], [facility], LCristopherLAlejandro 04/12/2025 10:25:59
[2025-04-12 12:40] LABS: Hematocrit 44.5 % (37-53); Hemoglobin 15.10 g/dL (11.27-16.99); Mean Corpuscular HGB Conc 33.9 g/dL (30-55); Mean Corpuscular Hemoglobin 30.1 pg (27-33); Mean Corpuscular Volume 88.6 fl (82-101); Nucleated Red Blood Cells % 0 %; Platelet Count 154 10^3/cmm (157-399); Red Blood Count 5.02 10^6/uL (3.85-5.65); White Blood Count 4.52 10^3/uL (3.29-11.43)
[2025-04-12 12:42] VITALS: BP 160/78; PULSE 62; O2SAT 94
[2025-04-12 12:55] LABS: Alanine Aminotransferase 20 U/L (0-41); Albumin Level 4.3 g/dL (3.5-5.2); Alkaline Phosphatase 90 U/L (40-130); Aspartate Amino Transferase 24 U/L (0-40); Blood Urea Nitrogen 14 mg/dL (8-23); Calcium 9.4 mg/dL (8.5-10.5); Carbon Dioxide 23 mmol/L (22-29); Chloride 109 mmol/L (98-107); Creatinine Clr Calc Pharmacy 82.1174; Globulin 2.4 g/dL (1.3-4.6); Glucose 121 mg/dL (65-115); Lipase 26 U/L (13-60); Osmolality Calculated 298 mOsm/kg (285-295); Sodium 143 mmol/L (136-145); Total Protein 6.7 g/dL (6.6-8.7); Troponin(5th) Baseline 12 ng/L (0-15)
[2025-04-12 12:56] LABS: Anion Gap 15.2 (5-19); Potassium 4.2 mmol/L (3.5-5.1)
[2025-04-12 13:00] VITALS: BP 135/57; PULSE 65; O2SAT 93
--- NOTE | 2025-04-12 13:27 | PC.PHAR ---
Patient took 4 *1 mg asprin today at 7:30 am
--- NOTE | 2025-04-12 13:29 | PC.PHAR ---
Patient took 4 81mg baby asprin 04/12/25 at 7:30 am .
[2025-04-12 14:00] VITALS: BP 137/65; PULSE 63; RESP 16; O2SAT 93
--- NOTE | 2025-04-12 14:05 | ECG_ITS ---
[facility] 2025-04-12 Pat Name: Urbano Albert Department: Room: Gender: Male Derrick Operator: : 1950 Requested By: Addi Steele Order Number: [id number] Nik MD: Dutch Clement M.D. Measurements Intervals [place] Rate: 62 P: 73 WY: 183 QRS: 56 QRSD: 86 T: 63 QT: 382 QTc: 390 Interpretive Statements SINUS RHYTHM Compared to ECG 04/12/2025 12:26:19 Ventricular premature complex(es) no longer present Electronically Signed On 04-12-2025 22:17:14 [employer] OFFICER by Dutch Clement M.D. [email or web address]
[2025-04-12 14:33] LABS: Troponin 5 2HR 11.41 ng/L (0-15)
[2025-04-12 14:35] LABS: Troponin 5 2HR Delta -0.59 ABS# (0-10)
[2025-04-12 14:52] VITALS: BP 151/71; PULSE 63; O2SAT 93
== END 2025-04-12 14:53 | disposition home or self-care (01) ==
PROVIDERS: Emergency Provider Emergency Medicine; PCP Family Medicine
DX: R07.9 Chest pain, unspecified (principal); Z79.82 Long term (current) use of aspirin
CPT/HCPCS: 71045; 80053; 83690; 84484; 85025; 93005; 99285

== ENCOUNTER → 2025-04-13 15:18 | Outpatient (BNVA) | payer MEDICARE, SELFPAY | PROVIDERS: PCP Family Medicine; Referring Provider Family Medicine; Visit Provider Internal Medicine Cardiovascular Disease | DX: I25.110 Atherosclerotic heart disease of native coronary artery with unstable angina pectoris (principal); Z95.5 Presence of coronary angioplasty implant and graft; Z87.891 Personal history of nicotine dependence | CPT/HCPCS: 99214 ==

== ENCOUNTER 2025-04-20 07:12 | Outpatient (CLI) | payer MEDICARE, SELFPAY ==
[2025-04-20] VITALS (47 sets, daily range): BP systolic 104–153; BP diastolic 46–118; PULSE 39–75; RESP 12–20; TEMP 36.6–36.7; O2SAT 92–100; BMI 29.9
--- NOTE | 2025-04-20 08:18 | W.PM.OPSUD ---
Surgery/Procedure H&P Update DATE OF PROCEDURE: April 20, 2025 DATE H&P PERFORMED: 04/13/25 H&P UPDATE INFORMATION: I have reviewed H&P completed within last 30 days, I have examined patient prior to procedure and No changes to prior documentation PREOP DIAGNOSIS: Worsening angina PRIMARY INDICATION FOR PROCEDURE: Worsening angina PLANNED PROCEDURE: Operation Date: 04/20/25 08:30 Proposed Procedures p Cardiac Catheterization(Left) - Dmitry Pina M.D Possible percutaneous coronary intervention PATIENT REASSESSED PRIOR TO SEDATION, WITH NO CHANGE NOTED: Yes PHYSICAL EXAM: alert, oriented x 3, clear to auscultation bilaterally and regular rate & rhythm AIRWAY EVAL/ANESTHESIA PLAN: normal airway, ASA III, Local Anesthesia, Risks, benefits & alternatives of sedation and/or procedure discussed and Patient agrees to continue as planned ADDITIONAL INFORMATION: Moderate sedation
--- NOTE | 2025-04-20 08:30 | XACV_ITS ---
Exam Room: 2 Ht: 175 cm Wt: 92 kg BSA: 2.14 m2 Gender: Male : 1950 Any Known Allergies: No known allergies Exam Priority: Routine Procedure(s): Procedure Description: Diagnostic procedure Procedure Description: PCI procedure Procedure Description: Drug Eluting Coronary Stent Procedure Description: PTCA Procedure Description: Miscellaneous Procedure Description: ACT Procedure Description: Coronary Angiography Diagnostic Cath Status: Elective Diagnostic Findings * INDICATION: Worsening angina. * Circumflex has mild to moderate luminal irregularities. * Left Main has no disease. * Mid Left Anterior Descending: severe 90% stenosis, WILLY: 3 flow. * Mid Right Coronary Artery: subtotal occlusion, WILLY: 1 flow. * Coronary angiography shows right dominance. PCI Status: Elective PCI Indication: Other Interventional Findings * Procedure detail: We engaged left main artery with XB 3 guide catheter. Run-through wire was used to cross the stenosis. We predilated the stenosis with 2.5 x 15 mm semicompliant balloon. This was followed by placement of 2.75 x 30 mm resolute Vivienne drug-eluting stent. Stent was postdilated with 3.0 x 12 mm NC balloon. At this time final angiogram showed excellent stent expansion and and no residual stenosis. Guidewire and guide catheter were removed. We then turned our attention to RCA stenosis. We engaged RCA with JR4 guide catheter. Run-through wire was used to cross subtotally occluded mid RCA segment. We predilated the stenosis with 2.5 x 15 mm semicompliant balloon. This was followed by predilation with 3.0 x 12 mm NC balloon. We then placed 3.0 x 34 mm resolute Granger drug-eluting stent. This was postdilated with 3.0 x 12 mm NC balloon at high pressure. At this time final angiogram was performed that showed excellent stent expansion and no residual stenosis. Guidewire and guide catheter were removed. Patient left the [facility] in a stable condition.. * Mid Left Anterior Descendin% stenosis treated with a AB TREK 2.50X15 RX BALLOON, MDT R VIVIENNE 2.75X30 RACH, and MDT NC EUPHORA RX [id number] BALLOON. 0% residual stenosis, WILLY: 3 flow. * Mid Right Coronary Artery: 99% stenosis treated with a AB TREK 2.50X15 RX BALLOON, MDT NC EUPHORA RX [id number] BALLOON, MDT R VIVIENNE 3.0X34 RACH, and MDT NC EUPHORA RX [id number] BALLOON. 0% residual stenosis, WILLY: 3 flow. Conclusions 1. Subtotal occlusion of mid RCA status post PCI with 1 stent. Severe stenosis of the mid LAD status post PCI with 1 stent. 2. Mid Left Anterior Descending was treated with a Balloon, Drug Eluting Stent, and Balloon. 3. Mid Right Coronary Artery was treated with a Balloon, Balloon, Drug Eluting Stent, and Balloon. Recommendations * Dual antiplatelet therapy. High intensity statin therapy. Outpatient cardiology follow up in 2-4 weeks. Interventional RX Recommendation: PCI w/o planned CABG Diagnostic RX Recommendation: PCI w/o planned CABG Anticoagulation: Heparin Pressures Phase:Rest AO : 81 / 47 ( 59 ) @ 8:39:00 AM Clinical Evaluation EBL: 5mL-10mL Procedural Details Procedure Consent Obtained. Pre-Procedure Time Out. Identified patient by full name and date of as verbalized by the patient/guarantor. Does the consent match the physician's order: Yes. Accurate & Complete Informed Consent: Yes. Inpatient/Outpatient History & Physical on Chart: Yes. If H&P is completed, is and addenduem needed: Yes; If yes, is the addendum complete: Yes. Visualize and Verify Site with Patient/Guarantor: N/A. Relevant Radiology Images available: Yes. The risks, benefits, and alternatives of sedation and/or procedure were discussed by physician. The patient agrees to continue. Procedure started. [facility] Clinical Fraility Score: 3: Managing Well. Home Builder Indications: Worsening Angina/Unstable angina. Chest Pain Symptom Assessment: Typical Angina Symptoms. Cardiovascular Instability: No. Correct patient, site and procedure confirmed by cath team. PERRLA. Strong, equal hand school teacher bilaterally. Lungs clear x 5 lobes. IV Site on Arrival: 20 gauge in the left anticubital. IV Fluids: 0.9% NaCl at KVO. 0 mL infused prior to cardiac cath tech. Pre Procedural Pulses: bilateral dorsalis pedis was 2+. Pre Procedural Pulses: bilateral posterior tibial was 2+. Pre Procedural Pulses: bilateral radial was 3+. Oxygen started at 2liters/min via nasal canula. right groin was prepped with chloroprep then draped in the usual sterile fashion. bilateral subclavian region was prepped with chloroprep then draped in the usual sterile fashion. Physician notified. Baseline sample Acquired. HR: 51 BPM. Patient's family in CPRU Room #4. Dr. Pina will update at the completion of the procedure. Equipment: 6F - Radial. Cardiac Cath Pack. ACIST Manifold Kit Model BT 2000. Heparinized Saline (2 units/mL), 1000 mL bag. Physician arrived. Physician scrubbed in. Immediate Pre-Procedure Time Out. Correct Patient: Yes; Correct Procedure: Yes; Correct Site: Yes; Correct Patient Position: Yes; Correct Supplies: Yes; Dried Flammable Prep: Yes; Blood Products Available: N/A. Lidocaine 1% infiltrated to the right radial. Arterial access obtained. A 5 luxembourger TIG catheter in over the exchange J wire. Multiple views taken of left coronary artery. Catheter redirected to the RCA. Multiple views taken of right coronary artery. Catheter removed over the exchange J wire. PCI Indication: CAD (without ischemic symptoms). 6 luxembourger XB 3 guide catheter was inserted over the exchange J wire. Runthrough guidewire was advanced through the guide catheter to lesion in the mid LAD. Inflation number : 1 A AB TREK 2.50X15 RX BALLOON was prepped and advanced across the Mid LAD , then inflated to 10 EMELI for 0:11 seconds. Inflation number: 2 The AB TREK 2.50X15 RX BALLOON was reinflated across the Mid LAD, to 10 EMELI for 0:10 seconds. Balloon out. Inflation Number : 3 A MDT R VIVIENNE 2.75X30 RACH -Lot Number# [id number] Exp. was prepped and advanced across the Mid LAD. The stent was deployed at 12 EMELI for 0:13 seconds. Stent balloon out over wire. Results checked. Inflation number : 4 A MDT NC EUPHORA RX [id number] BALLOON was prepped and advanced across the Mid LAD , then inflated to 16 EMELI for 0:17 seconds. Inflation number: 5 The MDT NC EUPHORA RX [id number] BALLOON was reinflated across the Mid LAD, to 20 EMELI for 0:13 seconds. Balloon out. ACT drawn. Results out of range High. Patient's family updated. Wire out. Guide catheter out over the exchange J wire. 6 luxembourger JR 4 guide catheter was inserted over the J wire. Runthrough guidewire was advanced through the guide catheter to lesion in the mid RCA. Inflation number : 1 A AB TREK 2.50X15 RX BALLOON was prepped and advanced across the Mid RCA , then inflated to 16 EMELI for 0:11 seconds. AP pads placed on the patient. Balloon out. Inflation number : 2 A MDT NC EUPHORA RX [id number] BALLOON was prepped and advanced across the Mid RCA , then inflated to 18 EMELI for 0:05 seconds. Inflation number: 3 The MDT NC EUPHORA RX [id number] BALLOON was reinflated across the Mid RCA, to 18 EMELI for 0:05 seconds. Balloon out. Inflation Number : 4 A MDT R VIVIENNE 3.0X34 RACH -Lot Number# [id number] Exp. was prepped and advanced across the Mid RCA. The stent was deployed at 12 EMELI for 0:12 seconds. Stent balloon out over wire. Inflation number : 5 A MDT NC EUPHORA RX [id number] BALLOON was prepped and advanced across the Mid RCA , then inflated to 20 EMELI for 0:12 seconds. Inflation number: 6 The MDT NC EUPHORA RX [id number] BALLOON was reinflated across the Mid RCA, to 20 EMELI for 0:07 seconds. Inflation number: 7 The MDT MATILDE EUPHORA RX [id number] BALLOON was reinflated across the Mid RCA, to 22 EMELI for 0:08 seconds. Balloon out. Wire out. ACT drawn. Results out of range high. Guide catheter out over the exchange J wire. Dr. Pina scrubbed out. A TR Band was successful obtaining hemostatsis at the Right Radial artery insertion site. Post Procedure: Pulses reassessed and unchanged. PERRLA. Strong, equal hand school teacher bilaterally. No VTE prophylaxis required. Medication's Wasted: Lidocaine 1% = 18 mL. Medication's Wasted: Nitro = 49.7 mg. Medication's Wasted: Other = Fentanyl 50 mcg. Total IV fluids: 250 mL. Post-op diagnosis: RACH x1 to the Mid LAD, RACH x 1 to the mid RCA. Complications: none. Estimated blood loss: 5mL-10mL. Responsiveness - Normal response to verbal stimuli; alert and oriented, PERRLA. Airway - Unaffected, no intervention required; spontaneous ventilation. Circulation: W/N/L, pulses unchanged. Nausea/Vomiting: No. Procedure completed. Patient transferred by bed to 1st floor. Patient transferred by wheelchair to 1st floor. Vital chart was stopped. ACT drawn. Results 268 seconds. Therapeutic limits - pre-heparin administration 90-150 seconds and monitoring heparin during a vascular procedure >250 seconds. Medication's Wasted: Heparin = 2000 units. Access Site Site: Right Radial artery Sheath Size: 6 Fr Hemostasis Method: TR Band Hemostasis Success: Successful Procedure Medications Start: 8:28 AM Stop: 8:28 AM Medication: Versed Amount: 1 mg Route: I.V. Start: 8:28 AM Stop: 8:28 AM Medication: Fentanyl Amount: 25 mcg Route: I.V. Start: 8:30 AM Stop: 8:30 AM Medication: Nitrogylcerin Amount: 200 mcg Route: I.A. Start: 8:33 AM Stop: 8:33 AM Medication: Heparin Amount: 5000 units Route: I.V. Start: 8:38 AM Stop: 8:38 AM Medication: Heparin Amount: 4000 units Route: I.V. Start: 8:46 AM Stop: 8:46 AM Medication: Versed Amount: 1 mg Route: I.V. Start: 8:46 AM Stop: 8:46 AM Medication: Fentanyl Amount: 25 mcg Route: I.V. Start: 8:47 AM Stop: 8:47 AM Medication: Nitrogylcerin Amount: 100 mcg Route: I.A. Start: 8:47 AM Stop: 8:47 AM Medication: 0.9% Saline Amount: 250 ml Route: I.V. bolus Start: 9:07 AM Stop: 9:07 AM Medication: Plavix Amount: 600 mg Route: P.O. I, the attending physician, have reviewed and verified all procedure medications. Yes, all medications given per verbal order History/Risk Factors Hypertension: Yes Dyslipidemia: Yes Peripheral Arterial Disease (PAD): No Myocardial Infarction (AL): No Obesity: No Renal Disease: No Tobacco Use: Former Prior Interventions PCI: No CABG: No Valve Surgery: No Report Signatures Finalized by Dmitry Pina MD on 05/01/2025 12:37 PM
--- NOTE | 2025-04-20 09:17 | PM.PROC ---
Procedure Note: Date of procedure: 04/20/25 Pre-procedure diagnosis: Worsening angina/ unstable angina Post-procedure diagnosis: other (Subtotal occlusion of mid RCA/ Severe mid LAD stenosis) Procedure: Subtotal occlusion of mid RCA s/p PCI with 1 stent. Severe mid LAD stenosis S/p PCI with 1 stent Dual antiplatelet therapy with aspirin and plavix High intensity statin therapy Performing Provider: Dmitry Pina Estimated blood loss (mL): 10 Complications: None Condition: stable Disposition: floor Coding Level of Care Code Acute Code for Adolph Jones
--- NOTE | 2025-04-20 10:07 | PC.NURSE ---
received from cardiac laborer adjustable steel joist via w/c at 0955.report received.pt is alert and awake and oriented x 4.sb on monitor.denies pain at present.right wrist with tr band on and inflated.right hand is warm to touch and with brisk capillary refill.palpable radial pulse noted distal to tr band..no hemtoma noted.pt instructed in activity restrictions s/p radial artery procedure..and instructed to notify staff for any bleeding,sob.numbness,dizziness,or for any concerns at all.pt verb understanding of instructions
--- NOTE | 2025-04-20 16:30 | PC.NURSE ---
tr band slowly deflated and eventually removed at 1600.right hand remains warm to touch and with brisk capillary refill.palpable radial pulse noted.no hematoma noted.site dressed with 2x2 gauze and secured with biocclusive drsg.pt instructed in activity restrictions s/p radial artery band removed...and instructed to notify staff for any bleeding,pain,sob,numbness,or for any concerns at all.pt verb understanding of instructions
[2025-04-21] VITALS (7 sets, daily range): BP systolic 101–138; BP diastolic 50–71; PULSE 49–66; RESP 16; TEMP 36.6; O2SAT 94–97; BMI 30.4
[2025-04-21 05:36] LABS: Hematocrit 40.5 % (37-53); Hemoglobin 13.60 g/dL (11.27-16.99); Mean Corpuscular HGB Conc 33.6 g/dL (30-55); Mean Corpuscular Hemoglobin 29.8 pg (27-33); Mean Corpuscular Volume 88.6 fl (82-101); Nucleated Red Blood Cells % 0 %; Platelet Count 133 10^3/cmm (157-399); Red Blood Count 4.57 10^6/uL (3.85-5.65); White Blood Count 4.27 10^3/uL (3.29-11.43)
[2025-04-21 05:53] LABS: Anion Gap 13.7 (5-19); Blood Urea Nitrogen 11 mg/dL (8-23); Calcium 8.7 mg/dL (8.5-10.5); Carbon Dioxide 25 mmol/L (22-29); Chloride 110 mmol/L (98-107); Glucose 89 mg/dL (65-115); Osmolality Calculated 297 mOsm/kg (285-295); Potassium 4.7 mmol/L (3.5-5.1); Sodium 144 mmol/L (136-145)
--- NOTE | 2025-04-21 09:54 | P.DS_ITS ---
<Statement entered by Dmitry Pina M.D - 04/23/25 19:43> Patient was cared for in conjunction with an advanced practice practitioner. I reviewed the chart and all pertinent data including imaging, telemetry, and laboratory results. I discussed the patient in detail with the advanced practice practitioner. Please see their note for agreed upon plan of care and results for the patient. Discharge Providers Date of Admission: 04/20/2025 Date of Discharge: April 21, 2025 Attending Provider at Discharge: Dmitry Pina M.D Primary Care Provider: Thaddeus Garcia MD Reason for Visit Reason for Visit: I20.0 Brief History: 75-year-old male with past medical histo ry of CAD seen in the office for chest pain and shortness of breath, symptoms suggestive of unstable angina. Coronary angiogram was scheduled. Hospital Course Hospital Course He underwent coronary angiogram yesterday which revealed subtotal occlusion in the mid RCA treated with RACH x 1, severe mid LAD stenosis treated with RACH x 1. He has done well overnight no complications with right radial cath site. No chest pain or shortness of breath this morning. Renal function was normal this morning. He can discharge home on aspirin, Plavix, atorvastatin 80 mg daily. Lisinopril uptitrated to 40 mg daily for better blood pressure control. Due to bradycardia, metoprolol succinate was reduced to 12.5 mg daily. Continue Imdur 15 mg twice daily. Follow-up in the cardiology clinic in 2 weeks. Physical Exam Const: COMMON NORMALS: no acute distress and patient oriented x3 GENERAL APPEARANCE: cooperative ORIENTATION/CONSCIOUSNESS: Yes awake, Yes oriented to person, Yes oriented to place and Yes oriented to time Chest: COMMONS NORMALS: normal inspection of the chest and normal palpation of entire chest wall CHEST: Yes Symmetrical chest wall rise Resp: COMMON NORMALS: normal respiratory effort, No retractions, No use of accessory muscles and clear to auscultation bilaterally AUSCULTATION: clear to auscultation bilaterally Cardio: COMMON NORMALS: regular rate, regular rhythm, S1 normal heart sound present, S2 normal heart sound present, No gallops present (Cardio), No clicks present (Cardio), No murmurs present (Cardio) and No rub (Cardio) RATE: regular rate RHYTHM: regular rhythm HEART SOUNDS: S1 normal heart sound present and S2 normal heart sound present PERIPHERAL PULSES: radial pulses present positive right 2+ and femoral pulses present positive right 2+ Neuro: COMMON NORMALS: patient oriented x3 and moves all extremities SENSORIUM/ORIENTATION: Yes oriented to person, Yes oriented to place and Yes oriented to time Skin: WOUNDS: Yes surgical site (no hematoma palpable) Details: no odor Discharge Data Studies Completed and Pending Pending at discharge Category Date Time Status [employer]OCIATE request for service Routine Exams 04/20/25 08:30 Taken Laboratory Results WBC 4.27 10^3/uL (3.29-11.43) 04/21/25 05:23 RBC 4.57 10^6/uL (3.85-5.65) 04/21/25 05:23 Hgb 13.60 g/dL (11.27-16.99) 04/21/25 05:23 Hct 40.5 % (37-53) 04/21/25 05:23 MCV 88.6 fl (82-101) 04/21/25 05:23 MCH 29.8 pg (27-33) 04/21/25 05:23 MCHC 33.6 g/dL (30-55) 04/21/25 05:23 RDW 12.2 % (12.1-15.1) 04/21/25 05:23 Plt Count 133 10^3/cmm (157-399) L 04/21/25 05:23 MPV 10.0 fL (7.4-10.4) 04/21/25 05:23 Neut % (Auto) 54.6 % 04/21/25 05:23 Lymph % (Auto) 31.9 % 04/21/25 05:23 [place] % (Auto) 9.8 % 04/21/25 05:23 Eos % (Auto) 3.3 % 04/21/25 05:23 Baso % (Auto) 0.2 % 04/21/25 05:23 Neut # (Auto) 2.33 10^3/uL (1.8-7.7) 04/21/25 05:23 Lymph # (Auto) 1.4 10^3/uL (0.8-4.8) 04/21/25 05:23 [place] # (Auto) 0.4 10^3/uL (0.2-0.9) 04/21/25 05:23 Eos # (Auto) 0.1 10^3/uL (0.0-0.8) 04/21/25 05:23 Baso # (Auto) 0.0 10^3/uL (0.0-0.1) 04/21/25 05:23 Nucleated RBC % (auto) 0 % 04/21/25 05:23 Nucleated RBCs # 0.0 /100WBC 04/21/25 05:23 Sodium 144 mmol/L (136-145) 04/21/25 05:23 Potassium 4.7 mmol/L (3.5-5.1) 04/21/25 05:23 Chloride 110 mmol/L (98-107) H 04/21/25 05:23 Carbon Dioxide 25 mmol/L (22-29) 04/21/25 05:23 Anion Gap 13.7 (5-19) 04/21/25 05:23 BUN 11 mg/dL (8-23) 04/21/25 05:23 Creatinine 0.7 mg/dL (0.7-1.2) 04/21/25 05:23 GFR Calculation Not Reportable 04/21/25 05:23 Glucose 89 mg/dL (65-115) 04/21/25 05:23 Calculated Osmolality 297 mOsm/kg (285-295) H 04/21/25 05:23 Calcium 8.7 mg/dL (8.5-10.5) 04/21/25 05:23 Vitals Last Vital Signs Temp 97.9 F 04/21/25 07:17 Pulse 57 L 04/21/25 07:17 Resp 16 04/21/25 07:17 BP 134/71 04/21/25 07:17 Pulse Ox 97 04/21/25 07:17 O2 Del Method Room Air 04/21/25 07:15 Discharge Plan Discharge Patient Disposition: Home Prescriptions: New atorvastatin 40 mg Tablet 80 mg PO BEDTIME Qty: 90 1RF clopidogrel 75 mg Tablet 75 mg PO DAILY Qty: 90 3RF metoprolol succinate 25 mg tablet extended release 24 hr 12.5 mg PO DAILY Qty: 90 3RF lisinopril 40 mg tablet 40 mg PO DAILY Qty: 90 3RF Continued isosorbide mononitrate 30 mg tablet extended release 24 hr 15 mg PO BID Qty: 90 0RF aspirin [Ron Low Dose Aspirin] 81 mg Tablet,Delayed Release (Dr/Ec) 81 mg PO DAILY nitroglycerin 0.4 mg Tablet, Sublingual 0.4 mg SUBLINGUAL Q5M PRN (Reason: Chest Pain) Rx Instructions: do not exceed 3 doses per episode Discontinued metoprolol succinate 50 mg tablet extended release 24 hr 50 mg PO DAILY lisinopril 30 mg tablet 30 mg PO DAILY rosuvastatin 40 mg tablet 40 mg PO DAILY Discharge Order = DC NOW: Discharge Order (Routine); Ordered 04/21/25 Ordered By: Luciana Tobin Referrals: Luciana Tobin FNP [Nurse Practitioner, Cardiology] - 05/16/25 8:30 am Thaddeus Garcia MD [Primary Care Provider, Family Practice] - 05/02/25 3:30 pm Diet: Cardiac Activity: Increase activity as tolerated Patient Instructions: Metoprolol (By mouth), Lisinopril (By mouth), Atorvastatin (By mouth), Clopidogrel (By mouth), Coronary Angioplasty (DC), Post Angiogram Home Care Instructions Activity Restrictions/Additional Instructions: No lifting over 5 pounds for the next 4 days. Print Language: Guyanese Discharge Date/Time: 04/21/25 10:19 Discharge Attestations Time Spent in Discharge Care*: less than 30 min Quality Metrics Clinical Quality Measures [ No reported AMI, CVA or VTE this stay] Coding Level of Care Code Acute Code for Chg Robert
--- NOTE | 2025-04-21 10:18 | PC.NURSE ---
discharge instructions given and explained to pt and spouse.they verb understanding of instructions.discharged via w/c to exit at this time.spouse to drive pt home
== END 2025-04-21 10:19 | disposition home or self-care (01) ==
LOC: CCL 07:18 → CSU 21:20
PROVIDERS: PCP Family Medicine; Visit Provider Internal Medicine
DX: I25.118 Atherosclerotic heart disease of native coronary artery with other forms of angina pectoris (principal); I25.82 Chronic total occlusion of coronary artery; I10 Essential (primary) hypertension; E78.5 Hyperlipidemia, unspecified; Z87.891 Personal history of nicotine dependence; Z79.82 Long term (current) use of aspirin
CPT/HCPCS: 36415; 80048; 85025; 85347; 93454; 99152; 99153; C1725; C1769; C1874; C1887; C1894; C9600; C9601; J0461; J1644; J2250; J3010; J3490; J7030; J9999; Q0163; Q9967

== ENCOUNTER → 2025-05-16 08:36 | Outpatient (BNVA) | payer MEDICARE, SELFPAY | PROVIDERS: PCP Family Medicine; Visit Provider Nurse Practitioner Family | DX: I25.10 Atherosclerotic heart disease of native coronary artery without angina pectoris (principal); Z51.89 Encounter for other specified aftercare | CPT/HCPCS: 36415; 80048; 99214 ==